=== PATIENT | female | born 2000 | race Caucasian/White ===

== ENCOUNTER → 2018-07-17 | Outpatient (CLI) | payer BC | LOC: MC.RAD 13:54 | DX: N63.11 Unspecified lump in the right breast, upper outer quadrant (principal) ==

== ENCOUNTER → 2019-01-17 | Outpatient (CLI) | payer BC | LOC: MC.RAD 08:01 | DX: D24.1 Benign neoplasm of right breast (principal); N60.81 Other benign mammary dysplasias of right breast ==